=== PATIENT | female | born 1940 | race Caucasian/White ===

== ENCOUNTER 2017-08-11 17:37 | Emergency (ER) | payer OTHER ==
[2017-08-11 19:34] VITALS: BP 108/60
== END 2017-08-11 19:34 | disposition home or self-care (01) ==
LOC: ED 17:37
DX: S60.512A Abrasion of left hand, initial encounter (principal); M79.7 Fibromyalgia; W55.01XA Bitten by cat, initial encounter; Y93.89 Activity, other specified; Y92.89 Other specified places as the place of occurrence of the external cause; Y99.8 Other external cause status
CPT/HCPCS: 90715